=== PATIENT | female | born 1975 | race African-American/Black ===

== ENCOUNTER 2017-03-12 14:54 | Emergency (ER) | payer BC ==
--- NOTE | 2017-03-12 15:40 | PHYS DOC ---
Past Medical History Past Medical History: Ovarian Cyst Past Surgical History: Other Additional Past Surgical Histo: eye surgery Alcohol Use: None Drug Use: None Adult General Chief Complaint Chief Complaint: WEAKNESS/GENERALIZED HPI HPI Patient is a 41 year old female that presents to the emergency department with complaints of "not feeling right in my head". Patient reports last 3 days she has not felt well and is been laying in bed. She states that she feels as if she is in bed but her head is someplace else. She states that she is confused that she is to recall events clearly, as reported by her daughter, over the last week. She reports that she has had the same symptoms previously when she was and diagnosed with hypothyroidism. She states that generally she was placed on Synthroid for the first for 5 months for and then the medication was discontinued. She states that she had a thyroid panel completed within the last year by her primary care provider was reported to be normal. Patient had no fever, no nausea, no vomiting. She had no chest pain, no abdominal pain. She reports no headache. She denies use of drugs or alcohol but does report one week ago, prior to onset of the symptoms, she was riding in a car where the other people were smoking weed. She states at that time she began to feel ill and has not felt well since. Review of Systems Review of Systems Constitutional: Denies fever or chills [] Eyes: Denies change in visual acuity, redness, or eye pain [] HENT: Denies nasal congestion or sore throat [] Respiratory: Denies cough or shortness of breath [] Cardiovascular: Denies chest pain, edema GI: Denies abdominal pain, nausea, vomiting, bloody stools or diarrhea [] : Denies dysuria or hematuria [] Musculoskeletal: Denies back pain or joint pain [] Integument: Denies rash or skin lesions [] Neurologic: Denies headache, focal weakness or sensory changes, complain of confusion[] Endocrine: Denies polyuria or polydipsia [] Current Medications Current Medications Current Medications Medications (Trade) Dose Ordered Sig/Dino Start Time Stop Time Status Last Admin Dose Admin Potassium Chloride (Klor-Con) 40 meq 1X ONCE 03/12/17 17:15 03/12/17 17:16 DC Allergies Allergies Allergies Coded Allergies Type Severity Reaction Last Updated Verified No Known Drug Allergies 10/18/15 No Physical Exam Physical Exam Constitutional: Well developed, well nourished, no acute distress, non-toxic appearance. [] HENT: Normocephalic, atraumatic, bilateral external ears normal, oropharynx moist, no oral exudates, nose normal. [] Eyes: PERRLA, EOMI, conjunctiva normal, no discharge. [] Neck: Normal range of motion, no tenderness, supple, no stridor. [] Cardiovascular:Heart rate regular rhythm, no murmur, no edema [] Lungs & Thorax: Bilateral breath sounds clear to auscultation [] Abdomen: Bowel sounds normal, soft, no tenderness, no masses, no pulsatile masses. [] Skin: Warm, dry, no erythema, no rash. [] Back: No tenderness, no CVA tenderness. [] Extremities: No tenderness, no cyanosis, no clubbing, ROM intact, no edema. [] Neurologic: Alert and oriented X 3, normal motor function, normal sensory function, no focal deficits noted. Cranial Nerves II through XII grossly intact [] Psychologic: Affect normal, judgement normal, mood normal. [] Current Patient Data Vital Signs Vital Signs Date Time Temp Pulse Resp B/P (MAP) Pulse Ox O2 Delivery O2 Flow Rate FiO2 03/12/17 15:15 98.1 74 20 141/92 (108) 100 Room Air 98.1 Lab Values Laboratory Tests Test 03/12/17 15:41 03/12/17 15:55 03/12/17 16:00 03/12/17 16:50 POC Urine HCG, Qualitative Hcg negative (Negative) Urine Collection Type Unknown Urine Color Miya Urine Clarity Clear Urine pH 6.0 Urine Specific Narvon 1.025 Urine Protein Negative mg/dL (NEG-TRACE) Urine Glucose (UA) Negative mg/dL (NEG) Urine Ketones (Stick) Trace mg/dL (NEG) Urine Blood Moderate (NEG) Urine Nitrite Negative (NEG) Urine Bilirubin Negative (NEG) Urine Urobilinogen Dipstick 0.2 mg/dL (0.2 mg/dL) Urine Leukocyte Esterase Negative (NEG) Urine RBC 6-10 /HPF (0-2) Urine WBC 5-10 /HPF (0-4) Urine Squamous Epithelial Cells Many /LPF Urine Bacteria Many /HPF (0-FEW) Urine Mucus Marked /LPF Urine Opiates Screen Neg (NEG) Urine Methadone Screen Neg (NEG) Urine Barbiturates Neg (NEG) Urine Phencyclidine Screen Neg (NEG) Urine Amphetamine/Methamphetamine Neg (NEG) Urine Benzodiazepines Screen Neg (NEG) Urine Cocaine Screen Neg (NEG) Urine Cannabinoids Screen Neg (NEG) Urine Ethyl Alcohol Neg (NEG) Sodium Level 139 mmol/L (136-145) Potassium Level 3.4 mmol/L (3.5-5.1) L Chloride Level 104 mmol/L (98-107) Carbon Dioxide Level 27 mmol/L (21-32) Anion Gap 8 (6-14) Blood Urea Nitrogen 7 mg/dL (7-20) Creatinine 1.0 mg/dL (0.6-1.0) Estimated GFR (Cockcroft-Gault) 74.3 BUN/Creatinine Ratio 7 (6-20) Glucose Level 98 mg/dL (70-99) Calcium Level 8.9 mg/dL (8.5-10.1) Total Bilirubin 0.3 mg/dL (0.2-1.0) Aspartate Amino Transferase (AST) 20 U/L (15-37) Alanine Aminotransferase (ALT) 22 U/L (14-59) Alkaline Phosphatase 74 U/L (46-116) Total Protein 8.0 g/dL (6.4-8.2) Albumin 3.3 g/dL (3.4-5.0) L Albumin/Globulin Ratio 0.7 (1.0-1.7) L Thyroid Stimulating Hormone (TSH) 0.320 uIU/mL (0.358-3.74) L White Blood Count 6.6 x10^3/uL (4.0-11.0) Red Blood Count 4.96 x10^6/uL (3.50-5.40) Hemoglobin 13.7 g/dL (12.0-15.5) Hematocrit 41.1 % (36.0-47.0) Mean Corpuscular Volume 83 fL (79-100) Mean Corpuscular Hemoglobin 28 pg (25-35) Mean Corpuscular Hemoglobin Concent 33 g/dL (31-37) Red Cell Distribution Width 15.0 % (11.5-14.5) H Platelet Count 237 x10^3/uL (140-400) Neutrophils (%) (Auto) 62 % (31-73) Lymphocytes (%) (Auto) 29 % (24-48) Monocytes (%) (Auto) 7 % (0-9) Eosinophils (%) (Auto) 2 % (0-3) Basophils (%) (Auto) 1 % (0-3) Neutrophils # (Auto) 4.1 x10^3uL (1.8-7.7) Lymphocytes # (Auto) 1.9 x10^3/uL (1.0-4.8) Monocytes # (Auto) 0.4 x10^3/uL (0.0-1.1) Eosinophils # (Auto) 0.1 x10^3/uL (0.0-0.7) Basophils # (Auto) 0.1 x10^3/uL (0.0-0.2) Laboratory Tests 03/12/17 16:50 Laboratory Tests 03/12/17 16:00 EKG EKG [] Radiology/Procedures Radiology/Procedures [][facility] [address] [place] [address] IMAGING REPORT Signed PATIENT: KIRAN HUNT ACCOUNT: [id number] : 1975 LOCATION: ER AGE: 41 SEX: F EXAM STATUS: REG ER ORD. PHYSICIAN: OSIEL CARMICHAEL APRN REASON: Confusion PROCEDURE: CT HEAD WO CONTRAST EXAM: CT head without contrast. HISTORY: Weakness and altered mental status. TECHNIQUE: Computed tomography of the head was performed without intravenous contrast. COMPARISON: None. FINDINGS: There is no intracranial hemorrhage. Ramírez-white differentiation is preserved. The ventricles are normal in size and position. The foramen magnum is crowded. There appears to be a component of cerebellar tonsillar ectopia bilaterally. The visualized paranasal sinuses appear clear. The orbits are unremarkable. The temporal bones are unremarkable. The calvarium reveals no suspicious lesions. IMPRESSION: 1. Cerebellar tonsillar ectopia with crowding at the foramen magnum. This suggests a Chiari 1 malformation. No hydrocephalus. MRI could further evaluate. 2. No acute intracranial findings. *One or more of the following individualized dose reduction techniques were utilized for this examination: 1. Automated exposure control. 2. Adjustment of the mA and/or kV according to patient size. 3. Use of iterative reconstruction technique. DICTATED and SIGNED BY: ANTONI PARIS MD DATE: 03/12/17 5249 CC: J CARLOS CHAWLA MD; OSIEL CARMICHAEL APRN ~ Course & Med Decision Making Course & Med Decision Making Pertinent Labs and Imaging studies reviewed. (See chart for details) []TSH slightly low, CT with Chiari 1 malformation, previously undiagnosed. Potassium was 3.4 she was treated with 40 mEq by mouth in the emergency department. I discussed the case with Dr. Kimball emergency room physician as well as Dr. Rainey, linen controller physician for Dr. Chawla. Patient is to call the office for follow-up and further evaluation. Is in agreement with this plan, she is in stable condition. She'll be discharged home. Dragon Disclaimer Dragon Disclaimer This electronic medical record was generated, in whole or in part, using a voice recognition dictation system. Departure Departure Impression: Primary Impression: Chiari I malformation Additional Impression: Hypothyroidism Disposition: 01 HOME, SELF-CARE Condition: STABLE Referrals: J CARLOS CHAWLA MD (PCP) Patient Instructions: Chiari Malformation Additional Instructions: Your primary care provider's office for follow-up appointment. Continue current home regimen. Problem Qualifiers Additional Impression: Hypothyroidism Hypothyroidism type: unspecified Qualified Codes: E03.9 - Hypothyroidism, unspecified OSIEL CARMICHAEL APRN Mar 12, 2017 15:40
[2017-03-12 16:12] LABS: BILIRUBIN,URINE NEGATIVE (NEG); GLUCOSE,URINE NEGATIVE (NEG); NITRITE,URINE NEGATIVE (NEG); PROTEIN,URINE NEGATIVE (NEG-TRACE); UROBILINOGEN,URINE 0.2 mg/dL (0.2 mg/dL)
[2017-03-12 16:25] LABS: BACTERIA,URINE MANY /HPF (0-FEW); SQUAMOUS EPITHELIAL CELL,UR MANY /LPF
--- NOTE | 2017-03-12 16:27 | RAD ---
EXAM: CT head without contrast. HISTORY: Weakness and altered mental status. TECHNIQUE: Computed tomography of the head was performed without intravenous contrast. COMPARISON: None. FINDINGS: There is no intracranial hemorrhage. Ramírez-white differentiation is preserved. The ventricles are normal in size and position. The foramen magnum is crowded. There appears to be a component of cerebellar tonsillar ectopia bilaterally. The visualized paranasal sinuses appear clear. The orbits are unremarkable. The temporal bones are unremarkable. The calvarium reveals no suspicious lesions. IMPRESSION: 1. Cerebellar tonsillar ectopia with crowding at the foramen magnum. This suggests a Chiari 1 malformation. No hydrocephalus. MRI could further evaluate. 2. No acute intracranial findings. *One or more of the following individualized dose reduction techniques were utilized for this examination: 1. Automated exposure control. 2. Adjustment of the mA and/or kV according to patient size. 3. Use of iterative reconstruction technique.
[2017-03-12 16:36] LABS: BARBITURATES NEG (NEG); BENZODIAZEPINES NEG (NEG); CANNABINOIDS NEG (NEG); COCAINE NEG (NEG); METHADONE NEG (NEG); OPIATES NEG (NEG); PHENCYCLIDINE NEG (NEG)
[2017-03-12 16:46] LABS: CALCIUM 8.9 mg/dL (8.5-10.1); GFR 74.3; POTASSIUM 3.4 mmol/L (3.5-5.1)
[2017-03-12 16:54] LABS: ALBUMIN 3.3 g/dL (3.4-5.0); ALBUMIN/GLOBULIN RATIO 0.7 (1.0-1.7); TOTAL BILIRUBIN 0.3 mg/dL (0.2-1.0)
[2017-03-12 16:58] LABS: BASO # 0.1 x10^3/uL (0.0-0.2); BASO % 1 % (0-3); EOS % 2 % (0-3); HEMATOCRIT 41.1 % (36.0-47.0); HEMOGLOBIN 13.7 g/dL (12.0-15.5); LYMPH # 1.9 x10^3/uL (1.0-4.8); LYMPH % 29 % (24-48); MEAN CORPUSCULAR HEMOGLOBIN 28 pg (25-35); MEAN CORPUSCULAR HGB CONC 33 g/dL (31-37); MEAN CORPUSCULAR VOLUME 83 fL (79-100); MONO % 7 % (0-9); NEUT % 62 % (31-73); PLATELET COUNT 237 x10^3/uL (140-400); RED BLOOD COUNT 4.96 x10^6/uL (3.50-5.40); WHITE BLOOD COUNT 6.6 x10^3/uL (4.0-11.0)
[2017-03-12 17:15] VITALS: BP 133/85
[2017-03-12] MEDS ORDERED: POTASSIUM CHLORIDE 20 MEQ TABLET.ER. PO ONE (17:15)
== END 2017-03-12 17:25 | disposition home or self-care (01) ==
LOC: ER 14:54
DX: G93.5 Compression of brain (principal); E03.9 Hypothyroidism, unspecified
CPT/HCPCS: 36415; 70450; 80053; 80307; 81001; 81025; 84443; 85025; 99285-25; G0479

== ENCOUNTER 2017-12-12 23:41 | Emergency (ER) | payer BC | END 2017-12-13 00:07 | disposition home or self-care (01) | LOC: ER 23:41 | DX: B33.8 Other specified viral diseases (principal) | CPT/HCPCS: 99281 ==

== ENCOUNTER → 2017-12-28 | Outpatient (CLI) | payer BC ==
[2017-12-12 23:45] VITALS: BP 158/90
--- NOTE | 2017-12-28 16:18 | KCIC ---
EXAMINATION: Magnetic resonance imaging (MRI) of the lumbar spine without contrast 12/28/2017 2:00 PM HISTORY: Radicular back pain. Bilateral leg pain and numbness for a couple months TECHNIQUE: Multiplanar multi-weighted MRI of the lumbar spine was performed without intravenous contrast using the standard lumbar spine protocol. Contrast information: None administered. COMPARISON: None available. FINDINGS: The alignment of the lumbar spine is normal. Vertebral bodies demonstrate normal signal intensity on all sequences. There are no compression fractures. The conus medullaris terminates at the level of L1. The distal spinal cord signal intensity is normal. There is mild disc desiccation of the lumbar spine sparing L5-S1 predominantly involving L4-L5. There is a small Schmorl's node involving the superior endplate of L3 without significant disc height loss. Annular fissure is identified at L4-L5. Limited views of the abdomen and pelvis show no soft tissue abnormality. The aorta is normal. L2-L3: The disc is normal in configuration. There is mild facet arthropathy. There is no neuroforaminal stenosis. There is no spinal canal stenosis. L3-L4: There is minimal disc bulge with a right foraminal disc protrusion. There is moderate facet arthropathy. There is moderate right neuroforaminal stenosis. There is no spinal canal stenosis. L4-L5: There is a left central disc protrusion with annular fissure. Findings are superimposed on diffuse disc bulge. There is moderate to severe facet arthropathy. There is mild to moderate bilateral neuroforaminal stenosis. There is mild spinal canal stenosis. There is left lateral recess stenosis. Findings may affect the traversing left L5 nerve. L5-S1: The disc is normal in configuration. There is severe facet arthropathy. There is no neuroforaminal stenosis. There is no spinal canal stenosis. IMPRESSION: Mild degenerative changes of the lumbar spine as described in detail above. Findings are most prominent at L4-L5. Electronically signed by: Dottie Lam MD (12/28/2017 4:15 PM) [facility]
== END | disposition home or self-care (01) ==
LOC: KCIC MRI 13:19
PROVIDERS: ATTEND Family Medicine
DX: M47.896 Other spondylosis, lumbar region (principal); M54.10 Radiculopathy, site unspecified
CPT/HCPCS: 72148

== ENCOUNTER → 2018-01-07 | Outpatient (CLI) | payer BC ==
[2017-12-12 23:45] VITALS: BP 158/90
[~2018-01-07] MED LIST: CYCL10TA2 PO; DICL100G18 TP; MELO15TA6 PO; VENTOLIN HFA18 GM INH
--- NOTE | 2018-01-07 18:38 | PAIN ---
DATE OF SERVICE: 01/07/2018 CHIEF COMPLAINT: Bilateral lower extremity pain. HISTORY OF PRESENT ILLNESS: This is a 42-year-old female who presents with history of pain in the bilateral lower extremities, posterior thighs, posterior gluteus, posterior calves, posterior knees, anterior knees, and anterior lower legs, medial thighs as well and interior tops of the feet and ankles for about 2 months or so, worsening with time. The patient originally thought this is increasing from her knees; however, she has had significant and complete workup with her orthopedist showing no significant orthopedic etiology for the pain and only some mild degenerative changes in the knees themselves. The patient reports it is worse with walking, standing, change in positions, even prolonged sitting can exacerbate the pain. The patient reports she walks about 5 miles a day every day and the pain radiates above and below her knees in her lower extremities. The patient reports it awakens her from sleep at least 3-4 times a night in the entire legs, right essentially equal to left. The patient has had some chiropractic treatment as well as some physical therapy in the past. These are mainly focused on her knees and lower extremities. She reports she does have physical therapy ordered, but has not started it yet as of date of this dictation. The patient has tried Flexeril, meloxicam and Motrin, which all helped to somewhat of an extent except for the Motrin, which has not helped significantly, has decreased the pain, but not above about 25% improvement. The patient did have an MRI scan of the lumbar spine showing a mild degenerative change of lumbar spine, most prominent at L4-L5 with a central to left disk protrusion, annular fissure with a mild canal stenosis, mild to moderate bilateral neural foraminal stenosis and the affected transversing left L5 nerve. The patient rates her disability from 0-10, 10 being the worst, 4 with family and home responsibilities, 5 with recreation and social activity, 9 with occupation, 4 with self-care, 9 with life support activities. The patient reports no loss of motor function, but significant fatigability of the bilateral lower extremities with activity on especially standing. PAST MEDICAL HISTORY: Significant for arthritis. Previous childbirths. PREVIOUS SURGERIES: Include eye surgery at age 7 from trauma, wisdom teeth extraction and left finger surgery in the past. CURRENT MEDICATIONS: Include Flexeril, meloxicam and topical diclofenac cream. ALLERGIES: The patient has no known drug allergies. FAMILY HISTORY: Significant for high blood pressure and breast cancer. SOCIAL HISTORY: The patient does not drink alcohol. Does not smoke. Does not use any illegal, illicit or recreational drugs. She is single, works at [employer] and lives locally in [place], [place]. REVIEW OF SYSTEMS: The patient's review of systems is positive for those items mentioned in history of present illness. All systems reviewed and otherwise negative. It is complete, full and well documented on the patient's chart. PHYSICAL EXAMINATION: VITAL SIGNS: Today, the patient's blood pressure is 136/98, pulse 78, respirations 20, temperature 98.2 degrees Fahrenheit, height is 5 feet 5 inches, weight is 286 pounds. GENERAL: The patient is awake, alert, oriented, appropriate, very pleasant demeanor. HEENT: Head shows normocephalic, atraumatic. Extraocular muscles are intact and symmetrical. Oral cavity: Mucous membranes moist and pink. Dentition is intact. NECK: Shows anterior throat supple without palpable lymphadenopathy noted. Swallow reflex is symmetrical. CHEST: Shows normal on inspection. Breath sounds clear to auscultation bilaterally. HEART: Shows S1, S2 clear. No murmurs auscultated. ABDOMEN: Soft, nontender, nondistended. No palpable organomegaly is noted. No rebound or guarding demonstrated. BACK: Shows spine grossly in the midline. Slight exaggeration of thoracic kyphosis and minor flattening of the lumbar lordotic curvature. Lumbar paraspinous musculature shows symmetrical on inspection, with only very minimal tenderness with palpation in the low lumbar distribution. Otherwise, nontender in the middle and upper distribution. The patient has full rotational motion of lumbar spine, both laterally as well as extension and flexion without significant difficulty. The patient shows no tenderness over the spinous processes, sacrum or sacroiliac regions. LOWER EXTREMITIES: Show deep tendon reflexes at 1+ in the patellar and tendo calcaneus tendons are equal. Motor exam is strong with approximately 4 on a scale of 5 with dorsiflexion, extension, quadriceps and hamstring flexion, but symmetrical bilaterally. Peripheral pulses are 1+ posterior tibia. No peripheral edema is noted. Lower extremities are warm and dry to touch, equal in color and appearance. The patient's straight leg raise noted to be negative bilaterally for reproduction of any radicular symptoms. Gaenslen's and Jonathon's maneuvers are negative bilaterally as well. The patient is able to stand, stand on her toes without significant difficulty or loss of balance, walks with a normal appearing gait, does not appear to favor the right or left lower extremity significantly. SKIN: Shows warm and dry, good turgor, no edema. No swelling, rashes or bruising. IMPRESSION: 1. This is a 42-year-old female with approximate 2-month history of increasing pain in bilateral lower extremities. 2. MRI scan of lumbar spine as noted. 3. History of arthritis. PLAN: Options were discussed with the patient including conservative medical management, physical therapy, interventional techniques. She would like to pursue most conservative measure at this time. We will have her start her physical therapy as she reported she needs to reschedule it as ordered by her primary physician. I encouraged her strongly to start this and get her rescheduled. If it is not significantly improved, we did discuss possible interventional techniques, but she would like to wait on that until the physical therapy has time to take effect. The patient has been off work by her report. Awaiting treatment to start; however, she has not started physical therapy and recommended that she give about at least 1-2 weeks of physical therapy to see if she is able to improve before returning to work, but she feels that she can perform her work duties prior to that. The patient understands and agrees and will follow up after physical therapy is begun and we will assess her pain situation at that time. AUSTIN KIRBY MD DR: MEETA/chino JOB#: [id number] / [id number] J CARLOS Hyman MD
== END | disposition home or self-care (01) ==
LOC: PNCL 09:42
PROVIDERS: ATTEND Anesthesiology
DX: M79.605 Pain in left leg (principal); M79.604 Pain in right leg; E03.9 Hypothyroidism, unspecified; M19.90 Unspecified osteoarthritis, unspecified site
CPT/HCPCS: 99214

== ENCOUNTER → 2018-01-22 | Outpatient (CLI) | payer BC ==
[2017-12-12 23:45] VITALS: BP 158/90
[~2018-01-22] MED LIST changes: +IOHEXOL 180 MG/ML 10 ML VIAL. ONE; +LIDOCAINE 2% PF 2ML VIAL. ONE; +methylPREDNISolone ACETATE 40 MG/ML VIAL. ONE; +methylPREDNISolone ACETATE 80 MG/ML VIAL. ONE
--- NOTE | 2018-01-22 22:01 | PAIN ---
DATE OF SERVICE: 01/22/2018 PROGRESS NOTE FOR PAIN CLINIC DIAGNOSES: Lumbar radiculopathy with lumbar degenerative disk disease, lumbar spinal stenosis. HISTORY OF PRESENT ILLNESS: The patient is a 42-year-old female who returns for followup status post initial evaluation on 01/07/2010. The patient had physical therapy scheduled. She has now tried this and has done about 1 week of it with increasing pain in her low back and bilateral lower extremities. The patient reports that physical therapy is very difficult to perform as it is causing the pain to be worse. She is still doing some stretching and strengthening exercises, mostly in the morning when she gets up. The patient reports it wakes her from sleep at night about 4 hours at a time every 4 hours. She has to reposition, get out of bed, change positions or stretch and get back to sleep. The patient reports her pain in the low back into the bilateral lower extremities, mostly in the lower legs, left slightly worse than the right. The patient reports the pain as a 7 on a scale of 10 at its worst, 6 on an average, 4 at its least, and is a 6 today. The patient reports no new motor or sensory deficits, no new bowel or bladder incontinence or other complaints. The patient does request revision of her work evaluation for her place of employment as she is not able to return to work with any restrictions. I informed her that she may need some restrictions to take the best care of her back and her legs, but she insists that she must return to work and was to have no restrictions. We will make the documentation for her work assessment papers as she feels she is able to return without any restrictions. PHYSICAL EXAMINATION: VITAL SIGNS: Today, the patient's blood pressure 143/99, pulse 73, respirations are 18, temperature 98.0 degrees Fahrenheit, height is 5 feet 5 inches, weighs 283 pounds. GENERAL: The patient is awake, alert, oriented, appropriate, very pleasant demeanor. HEENT: Head shows normocephalic, atraumatic. Extraocular muscles are intact and symmetrical. Oral cavity: Mucous membranes moist and pink. Dentition is intact. NECK: Shows anterior throat supple without palpable lymphadenopathy noted. Swallow reflex is symmetrical. CHEST: Shows normal with inspection. Breath sounds clear to auscultation bilaterally. HEART: Shows S1, S2 clear. No murmurs auscultated. ABDOMEN: Soft, nontender, nondistended. No palpable organomegaly is noted. No rebound or guarding is demonstrated. BACK: Shows spine grossly in the midline. Normal-appearing thoracic kyphosis and a slight increase in lumbar lordotic curvature. Lumbar paraspinous muscle shows [id number] tenderness, only diffusely in the low lumbar distribution, rotational motion of lumbar spine, both laterally as well as extension and flexion without difficulty. EXTREMITIES: Lower extremities show deep tendon reflexes 1+ in the patellar and tendo calcaneus tendons. Motor exam is approximately 4 on a scale 5 with equal and symmetrical dorsiflexion, extension bilaterally. Peripheral pulses are 1+ posterior tibia. No peripheral edema is noted bilaterally. Options were discussed with the patient. The patient's old chart was reviewed as was her current medication regimen updated. Current review of systems updated today as well. We will proceed with a lumbar epidural steroid injection today with fluoroscopic guidance. Risks were again discussed including, but not limited to bleeding, infection, possibility of epidural hematoma and subsequent neurological compromise, dural puncture, headaches, spinal cord and/or nerve damage, side effects to steroid medication and poor results regarding pain control. The patient understands and wished to proceed. The patient will return to clinic in approximately 2 weeks for followup, was counseled on return appointment, activity level and side effects to be aware of. DIAGNOSIS: Lumbar radiculopathy with lumbar degenerative disk disease, lumbar spinal stenosis. PROCEDURE: Lumbar epidural steroid injection, translaminar approach L4-L5 level using C-arm fluoroscopic guidance under sterile prep and drape using local anesthetic. MEDICATION INJECTED: A total of 120 mg Depo-Medrol plus 10 mL of preservative-free normal saline and 2 mL of Isovue for contrast. CONDITION AT DISCHARGE: Stable. The patient tolerated the procedure well, had no complications. AUSTIN KIRBY MD DR: MEETA/chino JOB#: [id number] / [id number]
== END | disposition home or self-care (01) ==
LOC: PNCL 08:47
PROVIDERS: ATTEND Anesthesiology
DX: M51.16 Intervertebral disc disorders with radiculopathy, lumbar region (principal); M48.061 Spinal stenosis, lumbar region without neurogenic claudication
CPT/HCPCS: 62323; J1030; J1040; J2001; Q9965

== ENCOUNTER 2018-03-04 22:26 | Emergency (ER) | payer BC ==
[~2018-03-04] VITALS: Ht 165.1 cm; Wt 129.3 kg
[~2018-03-04 22:26] MED LIST changes: -IOHEXOL 180 MG/ML 10 ML VIAL. ONE; -LIDOCAINE 2% PF 2ML VIAL. ONE; -methylPREDNISolone ACETATE 40 MG/ML VIAL. ONE; -methylPREDNISolone ACETATE 80 MG/ML VIAL. ONE
[2018-03-04 22:51] VITALS: BP 161/82
[2018-03-04] MEDS ORDERED: METH4TAB2 PO (23:17)
[2018-03-04] MEDS ORDERED: DICL50TA4 PO (23:17)
[2018-03-04] MEDS ORDERED: DIAZ5TAB PO (23:17)
--- NOTE | 2018-03-04 23:17 | PHYS DOC ---
Past Medical History Past Medical History: Ovarian Cyst, Other Additional Past Medical Histor: chronic back pain Past Surgical History: Other Additional Past Surgical Histo: eye surgery Alcohol Use: None Drug Use: None Adult General Chief Complaint Chief Complaint: BACK PAIN - NO INJURY HPI HPI Patient is a 42 year old female with a history of chronic sciatica who presents today with exacerbation of chronic low back pain radiating to bilateral lower extremities. She rates the pain as 8 out of 10 described as sharp and constant in the last couple days. Patient denies any known injury. Denies any loss of bowel bladder function. She states she follows up with the pain clinic where she gets injections. Her last injection was one month ago. Review of Systems Review of Systems Constitutional: Denies fever or chills [] GI: Denies abdominal pain, nausea, vomiting, bloody stools or diarrhea [] : Denies dysuria or hematuria [] Musculoskeletal: Reports bilateral low back pain radiating to bilateral lower extremities Integument: Denies rash or skin lesions [] Neurologic: Denies headache, focal weakness or sensory changes [] All other systems were reviewed and found to be within normal limits, except as documented in this note. Current Medications Current Medications Current Medications Medications (Trade) Dose Ordered Sig/Dino Start Time Stop Time Status Last Admin Dose Admin Ketorolac Tromethamine (Toradol Im) 60 mg 1X ONCE 03/04/18 23:30 03/04/18 23:31 DC 03/04/18 23:39 60 MG Allergies Allergies Allergies Coded Allergies Type Severity Reaction Last Updated Verified No Known Drug Allergies 03/11/15 No Physical Exam Physical Exam Constitutional: Well developed, well nourished, no acute distress, non-toxic appearance. [] Abdomen: Bowel sounds normal, soft, no tenderness, no masses, no pulsatile masses. [] Skin: Warm, dry, no erythema, no rash. [] Back: Overweight patient, moderate tenderness on palpation of bilateral SI joints, no midline lumbar spine tenderness, no CVA tenderness. [] Extremities: No tenderness, no cyanosis, no clubbing, ROM intact, no edema. [] Neurologic: Alert and oriented X 3, normal motor function, normal sensory function, no focal deficits noted. [] Psychologic: Affect normal, judgement normal, mood normal. [] Current Patient Data Vital Signs Vital Signs Date Time Temp Pulse Resp B/P (MAP) Pulse Ox O2 Delivery O2 Flow Rate FiO2 03/04/18 22:51 98.5 79 20 161/82 (108) 98 Room Air 98.5 EKG EKG [] Radiology/Procedures Radiology/Procedures [] Course & Med Decision Making Course & Med Decision Making Pertinent Labs and Imaging studies reviewed. (See chart for details) This is a 42-year-old female patient presenting to the ED today with exacerbation of chronic low back pain with sciatica. No cauda equina syndrome symptoms. Patient was discharged with Valium cyclobenzaprine and Medrol Dosepak. Follow-up with her own pain clinic doctor and PCP next week. Dragon Disclaimer Dragon Disclaimer This electronic medical record was generated, in whole or in part, using a voice recognition dictation system. Departure Departure Impression: Primary Impression: Chronic low back pain Additional Impressions: Sciatica of right side Sciatica of left side Disposition: HOME, SELF-CARE Condition: STABLE Referrals: J CARLOS ABBOTT MD (PCP) Follow-up with your doctor in the pain clinic doctor in one week Patient Instructions: Back Pain, Adult, Sciatica with Rehab[facility] Additional Instructions: You were evaluated in the emergency room for back pain with sciatica. Take the prescribed medications as ordered. Follow-up with the pain clinic doctor as soon as possible. You can also follow-up with your own primary care doctor. Scripts Methylprednisolone (MEDROL) 4 Mg Tab.ds.pk 1 PKG PO UD, #1 PKG Prov: GEOVANNY CORONEL APRN 03/04/18 Diazepam (VALIUM) 5 Mg Tablet 5 MG PO TID, #15 TAB Prov: GEOVANNY CORONEL APRN 03/04/18 Diclofenac Sodium (DICLOFENAC SODIUM) 50 Mg Tablet.dr 1 TAB PO BID, #20 TAB 0 Refills Prov: GEOVANNY CORONEL APRN 03/04/18 Attending Co-Sign Attending Co-Sign The patient was not seen by me. The [facility] chart was reviewed. I agree with the plan of care. Problem Qualifiers Primary Impression: Chronic low back pain Back pain laterality: bilateral Sciatica presence: with sciatica Sciatica laterality: bilateral sciatica Qualified Codes: M54.42 - Lumbago with sciatica, left side; M54.41 - Lumbago with sciatica, right side; G89.29 - Other chronic pain GEOVANNY CORONEL APRN Mar 04, 2018 23:17 EWA APARICIO MD Mar 07, 2018 04:45
[2018-03-04] MEDS ORDERED: KETOROLAC 60 MG/2 ML INJ. IM ONE (23:30)
== END 2018-03-04 23:39 | disposition home or self-care (01) ==
LOC: ER 22:26
DX: M54.41 Lumbago with sciatica, right side (principal); M54.42 Lumbago with sciatica, left side; G89.29 Other chronic pain; E66.3 Overweight; Z68.42 Body mass index [BMI] 45.0-49.9, adult
CPT/HCPCS: 96372; 99283; J1885

== ENCOUNTER 2018-03-31 10:40 | Emergency (ER) | payer BC ==
[~2018-03-31] VITALS: Ht 165.1 cm; Wt 129.3 kg
[~2018-03-31 10:40] MED LIST changes: +DIAZ5TAB PO; +DICL50TA4 PO; +METH4TAB2 PO
[2018-03-31 11:09] VITALS: BP 126/75
--- NOTE | 2018-03-31 11:19 | PHYS DOC ---
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 She states that she left work yesterday because she was having some nausea and vomiting, which she attributes to something that she ate. She is still significantly better today but needs a note to return to work. She denies any pain. She has not had any vomiting since yesterday, and has not had any diarrhea. She has not had any fevers or chills. She states her LMP was about 2 and half weeks ago and she is not , she has not had intercourse. She has not had any bloody or black stools. She has no symptoms at this time. Review of Systems Review of Systems Constitutional: Denies fever or chills [] Eyes: Denies change in visual acuity, redness, or eye pain [] HENT: Denies nasal congestion or sore throat [] Respiratory: Denies cough or shortness of breath [] Cardiovascular: The patient denies any shortness of breath, chest pain, palpitations, or orthopnea [] GI: Denies abdominal pain, nausea, vomiting, bloody stools or diarrhea [] : Denies dysuria or hematuria [] Neurologic: Denies headache, focal weakness or sensory changes [] Endocrine: Denies polyuria or polydipsia [] Allergies Allergies Allergies Coded Allergies Type Severity Reaction Last Updated Verified No Known Drug Allergies 03/11/15 No Physical Exam Physical Exam PHYSICAL EXAM: CONSTITUTIONAL: Well developed, well nourished HEAD: normocephalic, atraumatic EENT: PERRL, EOMI. Conjunctivae normal color, sclerae non-icteric; moist mucous membranes. NECK: Supple, non-tender; no meningismus. LUNGS: Lungs CTA, breathing even and unlabored. Normal air movement. HEART: Regular rate and rhythm, no murmur CHEST: No deformity; non-tender ABDOMEN: The abdomen is soft, and non-tender, no masses or bruits. EXTREM: Normal ROM; no deformity, no calf tenderness. Normal pulses palpable in all extremities. There is no pedal edema. SKIN: No rash; no diaphoresis NEURO: Alert; normal speech and cognition; CN's grossly intact; strength grossly intact without focal deficit. BACK: No CVA TTP. Current Patient Data Vital Signs Vital Signs Date Time Temp Pulse Resp B/P (MAP) Pulse Ox O2 Delivery O2 Flow Rate FiO2 03/31/18 11:09 97.5 82 16 126/75 (92) 99 Room Air 97.5 EKG EKG [] Radiology/Procedures Radiology/Procedures [] Dragon Disclaimer Dragon Disclaimer This electronic medical record was generated, in whole or in part, using a voice recognition dictation system. Departure Departure Impression: Primary Impression: Nausea and vomiting Disposition: 01 HOME, SELF-CARE Condition: STABLE Referrals: J CARLOS ABBOTT MD (PCP) Patient Instructions: Nausea and Vomiting EBONI LERMA MD Mar 31, 2018 11:19
== END 2018-03-31 11:32 | disposition home or self-care (01) ==
LOC: ER 10:40
DX: R11.2 Nausea with vomiting, unspecified (principal); G89.29 Other chronic pain
CPT/HCPCS: 99281

== ENCOUNTER 2018-04-25 00:08 | Emergency (ER) | payer BC ==
[~2018-04-25] VITALS: Ht 165.1 cm; Wt 127.9 kg
[2018-04-25 00:15] VITALS: BP 134/63
[2018-04-25] MEDS ORDERED: METH4TAB2 PO (01:02)
[2018-04-25] MEDS ORDERED: CYCL5TAB PO (01:02)
--- NOTE | 2018-04-25 01:12 | PHYS DOC ---
Past Medical History Past Medical History: Other Additional Past Medical Histor: back pain Past Surgical History: No Surgical History Additional Past Surgical Histo: eye surgery Alcohol Use: None Drug Use: None Adult General Chief Complaint Chief Complaint: BACK PAIN - NO INJURY [facility] HPI Patient is a 42 year old female with a hx of DDD and lumbar radiculopathy who presents for evaluation of left lower back pain which radiates into her left posterior and anterior thigh down to the knee. Pt reports that she has been doing a bit more lifting at work over the past 2 days and believes this has exacerbated her chronic back pain. The pain comes about intermittently and is not brought on by any specific action. She denies any numbness, weakness, bowel/ bladder incontinence, or saddle anesthesia. She reports having a epidural steroid injection around 4 months ago which has provided relief up until recently. She is scheduled to follow up with pain clinic to be evaluated for another injection. Around one month ago she had a Medrol dose pack which provided mild relief. She has also been taking Meloxicam with mild relief. She denies any recent trauma or fall. Denies IV drug use. Denies fevers and chills. No other Sx or complaints at this time. Review of Systems Review of Systems Constitutional: Denies fever or chills [] Eyes: Denies change in visual acuity, redness, or eye pain [] HENT: Denies nasal congestion or sore throat [] Respiratory: Denies cough or shortness of breath [] Cardiovascular: No additional information not addressed in HPI [] GI: Denies abdominal pain, nausea, vomiting, bloody stools or diarrhea [] : Denies dysuria or hematuria Musculoskeletal: + low back pain Integument: Denies rash or skin lesions [] Neurologic: Denies headache, focal weakness or sensory changes. Denies bowel and bladder incontinence. Denies saddle anesthesia. Endocrine: Denies polyuria or polydipsia [] All other systems were reviewed and found to be within normal limits, except as documented in this note. Allergies Allergies Allergies Coded Allergies Type Severity Reaction Last Updated Verified No Known Drug Allergies 03/11/15 No Physical Exam Physical Exam Constitutional: Well developed, well nourished, no acute distress, non-toxic appearance. [] HENT: Normocephalic, atraumatic, bilateral external ears normal, oropharynx moist, no oral exudates, nose normal. [] Eyes: PERRLA, EOMI, conjunctiva normal, no discharge. [] Neck: Normal range of motion, no tenderness, supple, no stridor. [] Pulmonary: Normal respiratory effort no increased work of breathing no obvious chest wall trauma Abdomen: Bowel sounds normal, soft, no tenderness, no masses, no pulsatile masses. [] Skin: Warm, dry, no erythema, no rash. [] Back: No tenderness, no CVA tenderness. [] Extremities: No tenderness, no cyanosis, no clubbing, ROM intact, no edema. [] Neurologic: Alert and oriented X 3, normal sensory function, no focal deficits noted. Negative straight leg raise. 5/5 strength BLE. Psychologic: Affect normal, judgement normal, mood normal. [] Current Patient Data Vital Signs Vital Signs Date Time Temp Pulse Resp B/P (MAP) Pulse Ox O2 Delivery O2 Flow Rate FiO2 04/25/18 00:15 98.0 72 20 134/63 (86) 100 Room Air 98.0 EKG EKG [] Radiology/Procedures Radiology/Procedures [] Course & Med Decision Making Course & Med Decision Making Pertinent Labs and Imaging studies reviewed. (See chart for details) Assessment: 42 y/o female presents for evaluation of left lower back and leg pain 1. Exacerbation of lumbar degenerative disc disease 2. Lumbar radiculopathy Plan: Medrol dose pack and Flexeril as needed short work note was given. No evidence of any acute WAIT STAFF pathology at this time on clinical examination Follow up with pain clinic Dragon Disclaimer Dragon Disclaimer This electronic medical record was generated, in whole or in part, using a voice recognition dictation system. Departure Departure Impression: Primary Impression: Chronic low back pain Disposition: HOME, SELF-CARE Condition: STABLE Referrals: J CARLOS ABBOTT MD (PCP) Scripts Cyclobenzaprine Hcl (CYCLOBENZAPRINE HCL) 5 Mg Tablet 5 MG PO PRN TID PRN for PAIN, #15 TAB Prov: SHYAM MENSAH MD 04/25/18 Methylprednisolone (MEDROL) 4 Mg Tab.ds.pk 1 PKG PO UD, #1 PKG Prov: SHYAM MENSAH MD 04/25/18 SHYAM MENSAH MD Apr 25, 2018 01:12
== END 2018-04-25 01:22 | disposition home or self-care (01) ==
LOC: ER 00:08
DX: G89.29 Other chronic pain (principal); M54.42 Lumbago with sciatica, left side
CPT/HCPCS: 99283

== ENCOUNTER → 2018-05-14 | Outpatient (CLI) | payer BC ==
[2018-04-25 00:15] VITALS: BP 134/63
[~2018-05-14] MED LIST changes: +CYCL5TAB PO; +IOHEXOL 180 MG/ML 10 ML VIAL. ONE; +methylPREDNISolone ACETATE 40 MG/ML VIAL. ONE; +methylPREDNISolone ACETATE 80 MG/ML VIAL. ONE
--- NOTE | 2018-05-14 10:33 | PAIN ---
DATE OF SERVICE: 05/14/2018 PROGRESS NOTE FOR PAIN CLINIC DIAGNOSES: Lumbar radiculopathy with lumbar degenerative disk disease and lumbar spinal stenosis. HISTORY OF PRESENT ILLNESS: The patient is a 42-year-old female who returns for followup status post lumbar epidural steroid injection x 1. The patient experienced about 95% improvement for several weeks on the injection, to the point where she thought followup for her additional injections and returns today; first one was on 01/22/2018. The patient returns today reporting pain has increased in the low back and bilateral lower extremities as it was previously. No new motor or sensory deficits. No new bowel or bladder incontinence, but still significant pain in low back and bilateral lower extremities, radiating into the posterior gluteus, posterior lateral thigh, lateral anterior thigh and medial thigh, but slightly worse on the left than the right, present bilaterally; worse with standing, walking or changing positions. The patient reports the pain is radiating, aching, tight, dull, shooting in the low back and into the lower extremities and becomes unbearable at times, mostly with bending, stooping or lifting items. The patient reports it is a 10 on scale of 10 at its worst, 6 on average, 4 at its least and it is a 6 today. The patient reports no new motor or sensory deficits. No bowel or bladder incontinence. PHYSICAL EXAMINATION: VITAL SIGNS: The blood pressure is 139/97, pulse 77, respirations 18 and temperature is 98.0 degrees Fahrenheit. Height is 5 feet 5 inches and weight is 298 pounds. GENERAL: The patient is awake, alert, oriented, appropriate, very pleasant demeanor. HEENT EXAMINATION: Shows normocephalic, atraumatic. The extraocular movements are intact and symmetrical. Oral cavity, mucous membranes are moist and pink. Dentition is intact. NECK: Shows anterior throat supple, without palpable lymphadenopathy noted. Swallow reflex is symmetrical. CHEST: Shows normal on inspection. Breath sounds are clear to auscultation bilaterally. HEART: Shows S1, S2 clear. No murmurs auscultated. ABDOMEN: Soft, nontender and nondistended. No palpable organomegaly is noted. No rebound or guarding demonstrated. BACK: Shows spine grossly in the midline. Normal-appearing thoracic kyphosis and lumbar lordotic curvature. Lumbar paraspinous muscle shows symmetrical on inspection. On palpation, there is some moderate tenderness diffusely in the middle and lower distribution of paraspinous muscles, but only diffusely without radiation. The patient has good rotational motion both laterally as well as extension and flexion, without exacerbation of pain. EXTREMITIES: Lower extremities show deep tendon reflexes 1+ in the patellar and tendo calcaneus tendons and are equal. Motor exam is 4 on a scale of 5, but symmetrical with dorsiflexion, extension, quadriceps and hamstring flexion. Peripheral pulses are 1+ posterior tibial. No peripheral edema is noted bilaterally. Options were discussed with the patient. The patient's old chart was reviewed as was her current medication regimen updated. Current review of systems at updated today as well. We will proceed with a second in a series of lumbar epidural steroid injections today under fluoroscopic guidance. Risks were again discussed including, but not limited to bleeding, infection, possibility of epidural hematoma, subsequent neurological compromise, dural puncture, headaches, spinal cord and/or nerve damage, side effects of steroid medication and poor results regarding pain control. The patient understands and wishes to proceed. The patient will return to the clinic in approximately 2 weeks for followup. She was counseled on her return appointment, activity level and side effects to be aware of. DIAGNOSES: Lumbar radiculopathy with lumbar degenerative disk disease and lumbar spinal stenosis. PROCEDURES: Lumbar epidural steroid injection in translaminar approach, L4-L5 level, using C-arm fluoroscopic guidance under sterile prep and drape using local anesthetic. MEDICATION INJECTED: A total of 120 mg Depo-Medrol plus 10 mL of preservative-free normal saline and 2 mL of Isovue for contrast. CONDITION AT DISCHARGE: Stable. The patient tolerated the procedure well, had no complications. AUSTIN KIRBY MD DR: MEETA/chino JOB#: [id number] / [id number]
== END | disposition home or self-care (01) ==
LOC: PNCL 08:44
PROVIDERS: ATTEND Anesthesiology
DX: M51.16 Intervertebral disc disorders with radiculopathy, lumbar region (principal); M48.061 Spinal stenosis, lumbar region without neurogenic claudication
CPT/HCPCS: 62323; J1030; J1040; Q9965

== ENCOUNTER 2018-09-06 20:09 | Emergency (ER) | payer BC ==
[2018-06-01 23:11] VITALS: BP 139/86
[~2018-09-06 20:09] MED LIST changes: -IOHEXOL 180 MG/ML 10 ML VIAL. ONE; -methylPREDNISolone ACETATE 40 MG/ML VIAL. ONE; -methylPREDNISolone ACETATE 80 MG/ML VIAL. ONE
== END 2018-09-07 02:32 | disposition left against medical advice (07) ==
LOC: ER 20:09
DX: J02.8 Acute pharyngitis due to other specified organisms (principal); Z53.21 Procedure and treatment not carried out due to patient leaving prior to being seen by health care provider

== ENCOUNTER → 2019-06-24 | Outpatient (CLI) | payer BC ==
[2018-06-01 23:11] VITALS: BP 139/86
--- NOTE | 2019-06-24 15:41 | RAD ---
MRI Lumbar Spine without contrast History: Radicular back pain Technique: Multiplanar, multi sequential noncontrast MR imaging was performed of the lumbar spine. Comparison: December 28, 2017 Findings: There is mild motion Vertebral body stature is maintained. There is again mild disc desiccation L4-5. There is no new significant marrow edema. There is negligible posterior subluxation L4 relative to L5. There is T2 hyperintense lesion of the right pelvis on the order of 4.6 cm transverse by 4.5 cm AP which probably arises from the right adnexa although incompletely imaged. L1-L2: This level was not included on the axial images, neural foramina and spinal canal adequate. L2-L3: Spinal canal and neural foramina are adequate. L3-L4: There is very minimal disc osteophyte complex eccentric to the far right lateral recess and inferior right neural foramen. There is mild narrowing of the right neural foramen, left neural foramen adequate. There is again very mild narrowing of the far right lateral recess. There is mild buckling of the ligamentum flavum and facet hypertrophic change. L4-L5: There is again minimal disc osteophyte complex and bulge. There is minimal buckling of the ligamentum flavum and facet degenerative change. There is mild narrowing of the far left lateral recesses left greater than right as seen previously, central canal adequate. Neural foramina are overall adequate. There is again small likely hemangioma of the posterior right L4 vertebral body. L5-S1: Neural foramina and spinal canal are adequate. Impression: 1. There is no significant lumbar spinal stenosis, again very mild narrowing of the far right lateral recess at L3-4 and mild narrowing of the far lateral recesses left greater than right at L4-5. There is again minimal narrowing of the right L3-4 neural foramen. 2. There is a large, cystic lesion of the right pelvis likely arising from the adnexa better characterized with ultrasound. Electronically signed by: Scar Macias MD (06/24/2019 3:38 PM) [email or web address]
== END | disposition home or self-care (01) ==
LOC: MRI 06-24 14:45
PROVIDERS: ATTEND Family Medicine
DX: M48.061 Spinal stenosis, lumbar region without neurogenic claudication (principal); M47.26 Other spondylosis with radiculopathy, lumbar region; M25.78 Osteophyte, vertebrae; N28.89 Other specified disorders of kidney and ureter
CPT/HCPCS: 72148

== ENCOUNTER → 2019-07-12 | Outpatient (CLI) | payer BC ==
[2018-06-01 23:11] VITALS: BP 139/86
[~2019-07-12] MED LIST changes: +IOHEXOL 180 MG/ML 10 ML VIAL. ONE; +methylPREDNISolone ACETATE 40 MG/ML VIAL. ONE; +methylPREDNISolone ACETATE 80 MG/ML VIAL. ONE
--- NOTE | 2019-07-12 18:38 | PAIN ---
DATE OF SERVICE: 07/12/2019 PROGRESS NOTE FOR PAIN CLINIC DIAGNOSES: Lumbar radiculopathy with lumbar degenerative disk disease, lumbar spinal stenosis. HISTORY OF PRESENT ILLNESS: The patient is a 43-year-old female who returns for followup status post lumbar epidural steroid injections in the past, last seen on 05/14/2018. Did very well with this, had about 90% improvement after her last injection. The patient reports the pain is returning now over the past month or two in the low back, in the bilateral lower extremities, more on the left than the right, in the anterior lateral thigh, lateral anterior medial lower leg and into the calf. The patient reports it is aching, sharp, shooting, becoming more radiating, constant in the low back and left leg. The patient reports it is a 7 on a scale of 10 at its worst over the past week, 5 on average, 3 at its least and is a 5 today. The patient reports no new motor or sensory deficits, no new recent injuries or accidents that she is aware of. She started to work again in March at the [employer] and has been having increased pain shortly after that time, but not to the level it was when she was seen in 2018. The patient reports no new bowel or bladder incontinence, no other changes. PHYSICAL EXAMINATION: VITAL SIGNS: The patient's blood pressure 125/77, pulse 87, respirations 16, temperature 97.3 degrees Fahrenheit, height is 5 feet 5 inches, weight is 305 pounds. GENERAL: The patient is awake, alert, oriented, appropriate, very pleasant demeanor. HEENT: Head shows normocephalic, atraumatic. Extraocular movements are intact and symmetrical. Oral cavity; mucous membranes moist and pink. Dentition is intact. NECK: Shows anterior throat supple. CHEST: Shows normal on inspection. Breath sounds are clear bilaterally. HEART: Shows S1, S2 clear. No murmurs auscultated. ABDOMEN: Obese but soft, nontender, nondistended. BACK: Shows spine grossly in the midline. Normal appearing thoracic kyphosis and minor flattening of lumbar lordotic curvature. Lumbar paraspinous muscle shows symmetrical on inspection. On palpation, some moderate tenderness diffusely bilaterally, going diffusely without significant radiation. EXTREMITIES: The patient's lower extremities show deep tendon reflexes at 1+ in the patellar and tendo calcaneus tendons are equal. Motor exam is approximately 4 on a scale of 5 dorsiflexion, extension, but symmetrical as is quadriceps and hamstring flexion 4/5 and equal and symmetrical as well. Peripheral pulses are 1+. No peripheral edema is noted. Options were discussed with the patient. The patient's old chart was reviewed as was her current medication regimen updated. Current review of systems updated today as well and we will proceed with a lumbar epidural steroid injection today with fluoroscopic guidance as the first in this series. Risks were discussed including but not limited to bleeding, infection, possibility of epidural hematoma, subsequent neurological compromise, dural puncture, headaches, spinal cord and/or nerve damage, side effects of steroid medication and poor results regarding pain control. The patient understands and wished to proceed. The patient will return to clinic in approximately 2 weeks for followup. She was counseled on return appointment, activity level and side effects to be aware of. DIAGNOSES: Lumbar radiculopathy with lumbar degenerative disk disease, lumbar spinal stenosis. PROCEDURES: Lumbar epidural steroid injection, translaminar approach at L4-L5 level using C-arm fluoroscopic guidance under sterile prep and drape using local anesthetic. MEDICATION INJECTED: A total of 120 mg Depo-Medrol plus 10 mL of preservative-free normal saline and 2 mL of contrast. CONDITION AT DISCHARGE: Stable. The patient tolerated the procedure well, had no complications. AUSTIN KIRBY MD DR: MEETA/chino JOB#: [id number] / [id number]
== END ==
LOC: PNCL 13:17
PROVIDERS: ATTEND Anesthesiology
DX: M51.16 Intervertebral disc disorders with radiculopathy, lumbar region (principal); M48.061 Spinal stenosis, lumbar region without neurogenic claudication
CPT/HCPCS: 62323; J1030; J1040; Q9965

== ENCOUNTER → 2019-08-05 | Outpatient (CLI) | payer BC ==
[2018-06-01 23:11] VITALS: BP 139/86
[~2019-08-05] MED LIST changes: -IOHEXOL 180 MG/ML 10 ML VIAL. ONE; -methylPREDNISolone ACETATE 40 MG/ML VIAL. ONE; -methylPREDNISolone ACETATE 80 MG/ML VIAL. ONE
--- NOTE | 2019-08-05 10:34 | RAD ---
Examination: MRI of the right knee without contrast History : History of right knee effusion COMPARISON: None available TECHNIQUE: Multiplanar, multisequence MR imaging of the right knee were performed without contrast FINDINGS: The anterior cruciate ligament, posterior cruciate ligament appear intact. The medial meniscus, lateral meniscus appear intact. The medial collateral ligament is intact. The lateral collateral ligamentous complex including the fibular collateral ligament, biceps femoris tendon, popliteus tendon appear intact. The extensor mechanism is intact. Moderate knee joint effusion is identified. There is focal cartilage loss identified in the weightbearing portion of the medial femoral condyle measuring 1 cm in AP dimension with underlying mild focal trabecular edema. The medial retinaculum, lateral retinaculum appear intact. There is a 1 cm focal cartilage loss identified in the medial patellar facet. IMPRESSION: 1. Focal cartilage loss identified in the weightbearing portion of the medial femoral condyle and medial patellar facet. 2. Moderate knee joint effusion. Electronically signed by: Roman Lew MD (08/05/2019 10:32 AM) [id number]
== END | disposition home or self-care (01) ==
LOC: MRI 08:37
PROVIDERS: ATTEND Family Medicine
DX: M25.461 Effusion, right knee (principal)
CPT/HCPCS: 73721